=== PATIENT | female | born 1960 | race Caucasian/White ===

== ENCOUNTER 2024-05-12 03:06 | Emergency (ER) | payer OTHER ==
[2024-05-12 03:31] VITALS: TEMP 96.4
--- NOTE | 2024-05-12 03:53 | ERPHSYRPT ---
- History of Present Illness Source: patient, family, EMS Exam Limitations: clinical condition Patient Subjective Stated Complaint: per ems, pt was confused at home. upon arrival pt was cool and clammy, confused with repetitive speech. Triage Nursing Assessment: pt alert, oriented, to person only. confused with repetitive speech. pt arrive per ambulance and transfers to stretcher with assist of 3. respirations nonlabored. skin cool and clammy. pupils equal and reactive. pt moves all extremities without diff. Timing/Duration: today Severity: moderate Character of Deficits: unable to speak Deficits: weak Hx Tetanus, Diphtheria Vaccination/Date Given: (unknown) <CADEN GUTIERREZ - Last Filed: 05/12/24 06:39> <FILIPE MYERS - Last Filed: 05/12/24 09:08> - History of Present Illness Time Seen by Provider: 05/12/24 03:30 Physician History: This is a 63-year-old white female patient brought to the emergency department by the paramedics at the request of neighbor because of this patient having confusion. Patient's blood sugar was 127. Patient arrives diaphoretic with skin that is cool. Her speech is repetitive in its pattern. She is a poor historian. The timing of this occurring is unknown. We do not know her drug allergies or medication list. Patient's daughter did call here and informed the nursing staff that patient was at [facility] emergency department yesterday. We will locate those records and I will review them. Patient shakes her head no when asked if she is having chest pain. Patient shakes her head no when she was asked if she has abdominal pain. Patient shook her head no when asked if she had shortness of breath. (CADEN GUTIERREZ) Allergies/Adverse Reactions: metronidazole [From Flagyl] Allergy (Intermediate, Verified 05/12/24 05:26) Hives nystatin Allergy (Intermediate, Verified 05/12/24 05:26) Hives hydrocodone Adverse Reaction (Mild, Verified 05/12/24 05:26) Nausea Travel Risk - International Travel Have you traveled outside of the country in past 3 weeks: No - Emerging Infectious Disease Are you exhibiting symptoms associated with any current EIDs: No <CADEN GUTIERREZ - Last Filed: 05/12/24 06:39> - Past Medical History Pertinent Past Medical History: No Neurological History: No Pertinent History ENT History: No Pertinent History Cardiac History: No Pertinent History Respiratory History: No Pertinent History Endocrine Medical History: No Pertinent History Musculoskeletal History: No Pertinent History GI Medical History: No Pertinent History History: No Pertinent History Psycho-Social History: No Pertinent History Female Reproductive Disorders: No Pertinent History Other Medical History: pt confused, hx obtained from previous visit. - Past Surgical History Past Surgical History: Yes Neuro Surgical History: No Pertinent History Cardiac: No Pertinent History Respiratory: No Pertinent History Gastrointestinal: No Pertinent History Genitourinary: No Pertinent History Musculoskeletal: No Pertinent History Female Surgical History: Tubal Ligation, Other Other Surgical History: breast cyst removed, eyes-LASIX surgery - Social History Smoking Status: Former smoker Exposure to second hand smoke: No Drug Use: none - Social Determinants of Health Will the patient participate in the screening: Unable to obtain <CADEN GUTIERREZ - Last Filed: 05/12/24 06:39> - Physical Exam SpO2: 96 <CADEN GUTIERREZ - Last Filed: 05/12/24 06:39> - Nursing Vital Signs Nursing Vital Signs: Initial Vital Signs Temperature 96.4 F 05/12/24 03:13 Pulse Rate 80 05/12/24 03:13 Respiratory Rate 16 05/12/24 03:13 Blood Pressure 126/81 05/12/24 03:13 O2 Sat by Pulse Oximetry 96 05/12/24 03:13 Pain Scale Pain Intensity 3 - Course EKG Interpreted by Me: RATE (71), Sinus Rhythm, NORMAL AXIS, NORMAL INTERVALS, NORMAL QRS, Other (No acute ischemic changes on today's twelve-lead EKG. QTc is 433) <CADEN GUTIERREZ - Last Filed: 05/12/24 06:39> Ordered Tests: Active Orders 24 hr Category Date Time Status Photographer Finish STAT Care 05/12/24 03:53 Active Cath for Specimen-Straight STAT Care 05/12/24 03:53 Active Clean Catch Urine Specimen STAT Care 05/12/24 04:59 Active EKG-ER Only STAT Care 05/12/24 03:53 Active IV Insertion STAT Care 05/12/24 03:53 Active NPO (ED) STAT Care 05/12/24 03:53 Active Pulse Oximetry (ED) STAT Care 05/12/24 03:53 Active HEAD WITHOUT CONTRAST [CT] Stat Exams 05/12/24 03:25 Completed Alcohol [ETHYL ALCOHOL] Stat Lab 05/12/24 04:10 Completed BLOOD CULTURE Stat Lab 05/12/24 04:15 Received CBC W DIFF Stat Lab 05/12/24 04:15 Completed CMP Stat Lab 05/12/24 04:15 Completed CULTURE,URINE Stat Lab 05/12/24 04:25 Received D-DIMER QUANTITATIVE Stat Lab 05/12/24 04:10 Completed Lactic Acid Stat Lab 05/12/24 04:05 Completed MONO SCREEN Stat Lab 05/12/24 04:15 Completed PROTIME WITH INR Stat Lab 05/12/24 04:15 Completed TROPONIN Q4H Lab 05/12/24 04:10 Completed TROPONIN Q4H Lab 05/12/24 06:17 Completed TROPONIN Q4H Lab 05/12/24 13:00 Ordered TROPONIN Q4H Lab 05/12/24 17:00 Ordered TROPONIN Q4H Lab 05/12/24 21:00 Ordered UA W/RFX UR CULTURE Stat Lab 05/12/24 04:25 Completed Urine Triage Profile Stat Lab 05/12/24 04:10 Completed Medication Summary Generic Name Dose Route Start Last Admin Trade Name Freq PRN Reason Stop Dose Admin Sodium Chloride 1,000 mls @ 100 mls/hr 05/12/24 04:00 05/12/24 04:07 Sodium Chloride 0.9% 1000 Ml IV 06/11/24 03:59 100 mls/hr .Q10H JAMEE Administration Lab/Rad Data: Laboratory Result Diagrams 05/12/24 04:15 05/12/24 04:15 Laboratory Results 05/12/24 05/12/24 05/12/24 Range/Units 06:17 04:25 04:15 WBC (3.98-10.04) x10^3/uL RBC (3.93-5.22) x10^6/uL Hgb (11.2-15.7) g/dL Hct (34.1-44.9) % MCV (79.4-94.8) fL MCH (25.6-32.2) pg MCHC (32.2-35.5) g/dL RDW (11.7-14.4) % Plt Count (182-369) x10^3/uL MPV (9.4-12.3) fL Gran % (34.0-71.1) % Immature Gran % (Auto) (0.001-0.429) % Nucleat RBC Rel Count (0.00-0.2) % Eos # (Auto) (0.04-0.36) x10^3/uL Immature Gran # (Auto) (0.001-0.031) x10^3u/L Absolute Lymphs (auto) (1.18-3.74) x10^3/uL Absolute Monos (auto) (0.24-0.86) x10^3/uL Absolute Nucleated RBC (0.00-0.012) x10^3u/L Lymphocytes % (19.3-51.7) % Monocytes % (4.7-12.5) % Eosinophils % (0.7-5.8) % Basophils % (0.1-1.2) % Absolute Granulocytes (1.56-6.13) x10^3/uL Basophils # (0.01-0.08) x10^3/uL PT (9.4-12.5) SECONDS INR (0.8-3.0) D-Dimer (0.0-0.50) mg/L Sodium (135-145) mmol/L Potassium (3.5-5.1) mmol/L Chloride (98-107) mmol/L Carbon Dioxide (22-30) mmol/L Anion Gap (5-15) MEQ/L BUN (7-17) mg/dL Creatinine (0.52-1.04) mg/dL Estimated GFR ML/MIN Glucose (74-106) mg/dL Lactic Acid (0.4-2.0) Calcium (8.4-10.2) mg/dL Total Bilirubin (0.2-1.3) mg/dL AST (14-36) U/L ALT (0-35) U/L Alkaline Phosphatase (38-126) U/L Ammonia (9-30) umol/L Troponin I < 0.012 (0.000-0.033) ng/mL Serum Total Protein (6.3-8.2) g/dL Albumin (3.5-5.0) g/dL Urine Color Dark Yellow A (Yellow) Urine Appearance Clear (Clear) Urine pH 5.5 (4.6-8.0) Ur Specific Gilman 1.025 (1.005-1.030) Urine Protein 300 A (Negative) Urine Glucose (UA) Negative (Negative) mg/dL Urine Ketones Trace A (Negative) Urine Blood Negative (Negative) Urine Nitrite Negative (Negative) Urine Bilirubin Negative (Negative) Urine Urobilinogen 1.0 A (0.2) mg/dL Ur Leukocyte Esterase Negative (Negative) U Hyaline Cast (Auto) 20-50 (0-2) /LPF Urine Microscopic RBC 0-2 (0-5) /HPF Urine Microscopic WBC 6-10 A (0-5) /HPF Ur Epithelial Cells Rare (None Seen) /HPF Urine Bacteria None Seen (None Seen) /HPF Urine Mucus Many A (NEGATIVE) /HPF Urine Culture Reflexed ORDERED SEPARATELY (NO) Urine Opiates Level (NEGATIVE) Ur Methadone (NEGATIVE) Urine Barbiturates (NEGATIVE) Ur Phencyclidine (PCP) (NEGATIVE) Urine Amphetamine (NEGATIVE) U Benzodiazepine Level (NEGATIVE) Urine Cocaine (NEGATIVE) Urine Marijuana (THC) (NEGATIVE) Ethyl Alcohol (0-10) mg/dL Monoscreen (NEGATIVE) Influenza Type A Ag NEGATIVE (NEGATIVE) Influenza Type B Ag NEGATIVE (NEGATIVE) RSV (PCR) NEGATIVE (NEGATIVE) SARS-CoV-2 (PCR) NEGATIVE (NEGATIVE) 05/12/24 05/12/24 05/12/24 Range/Units 04:15 04:15 04:15 WBC (3.98-10.04) x10^3/uL RBC (3.93-5.22) x10^6/uL Hgb (11.2-15.7) g/dL Hct (34.1-44.9) % MCV (79.4-94.8) fL MCH (25.6-32.2) pg MCHC (32.2-35.5) g/dL RDW (11.7-14.4) % Plt Count (182-369) x10^3/uL MPV (9.4-12.3) fL Gran % (34.0-71.1) % Immature Gran % (Auto) (0.001-0.429) % Nucleat RBC Rel Count (0.00-0.2) % Eos # (Auto) (0.04-0.36) x10^3/uL Immature Gran # (Auto) (0.001-0.031) x10^3u/L Absolute Lymphs (auto) (1.18-3.74) x10^3/uL Absolute Monos (auto) (0.24-0.86) x10^3/uL Absolute Nucleated RBC (0.00-0.012) x10^3u/L Lymphocytes % (19.3-51.7) % Monocytes % (4.7-12.5) % Eosinophils % (0.7-5.8) % Basophils % (0.1-1.2) % Absolute Granulocytes (1.56-6.13) x10^3/uL Basophils # (0.01-0.08) x10^3/uL PT 9.9 (9.4-12.5) SECONDS INR 0.90 (0.8-3.0) D-Dimer (0.0-0.50) mg/L Sodium (135-145) mmol/L Potassium (3.5-5.1) mmol/L Chloride (98-107) mmol/L Carbon Dioxide (22-30) mmol/L Anion Gap (5-15) MEQ/L BUN (7-17) mg/dL Creatinine (0.52-1.04) mg/dL Estimated GFR ML/MIN Glucose (74-106) mg/dL Lactic Acid (0.4-2.0) Calcium (8.4-10.2) mg/dL Total Bilirubin (0.2-1.3) mg/dL AST (14-36) U/L ALT (0-35) U/L Alkaline Phosphatase (38-126) U/L Ammonia < 9 L (9-30) umol/L Troponin I (0.000-0.033) ng/mL Serum Total Protein (6.3-8.2) g/dL Albumin (3.5-5.0) g/dL Urine Color (Yellow) Urine Appearance (Clear) Urine pH (4.6-8.0) Ur Specific Gilman (1.005-1.030) Urine Protein (Negative) Urine Glucose (UA) (Negative) mg/dL Urine Ketones (Negative) Urine Blood (Negative) Urine Nitrite (Negative) Urine Bilirubin (Negative) Urine Urobilinogen (0.2) mg/dL Ur Leukocyte Esterase (Negative) U Hyaline Cast (Auto) (0-2) /LPF Urine Microscopic RBC (0-5) /HPF Urine Microscopic WBC (0-5) /HPF Ur Epithelial Cells (None Seen) /HPF Urine Bacteria (None Seen) /HPF Urine Mucus (NEGATIVE) /HPF Urine Culture Reflexed (NO) Urine Opiates Level (NEGATIVE) Ur Methadone (NEGATIVE) Urine Barbiturates (NEGATIVE) Ur Phencyclidine (PCP) (NEGATIVE) Urine Amphetamine (NEGATIVE) U Benzodiazepine Level (NEGATIVE) Urine Cocaine (NEGATIVE) Urine Marijuana (THC) (NEGATIVE) Ethyl Alcohol (0-10) mg/dL Monoscreen NEGATIVE (NEGATIVE) Influenza Type A Ag (NEGATIVE) Influenza Type B Ag (NEGATIVE) RSV (PCR) (NEGATIVE) SARS-CoV-2 (PCR) (NEGATIVE) 05/12/24 05/12/24 05/12/24 Range/Units 04:15 04:15 04:10 WBC 7.8 (3.98-10.04) x10^3/uL RBC 4.82 (3.93-5.22) x10^6/uL Hgb 14.4 (11.2-15.7) g/dL Hct 42.6 (34.1-44.9) % MCV 88.4 (79.4-94.8) fL MCH 29.9 (25.6-32.2) pg MCHC 33.8 (32.2-35.5) g/dL RDW 13.7 (11.7-14.4) % Plt Count 296 (182-369) x10^3/uL MPV 9.2 L (9.4-12.3) fL Gran % 73.4 H (34.0-71.1) % Immature Gran % (Auto) 0.5 H (0.001-0.429) % Nucleat RBC Rel Count 0.0 (0.00-0.2) % Eos # (Auto) 0.10 (0.04-0.36) x10^3/uL Immature Gran # (Auto) 0.04 H (0.001-0.031) x10^3u/L Absolute Lymphs (auto) 1.41 (1.18-3.74) x10^3/uL Absolute Monos (auto) 0.46 (0.24-0.86) x10^3/uL Absolute Nucleated RBC 0.00 (0.00-0.012) x10^3u/L Lymphocytes % 18.1 L (19.3-51.7) % Monocytes % 5.9 (4.7-12.5) % Eosinophils % 1.3 (0.7-5.8) % Basophils % 0.8 (0.1-1.2) % Absolute Granulocytes 5.72 (1.56-6.13) x10^3/uL Basophils # 0.06 (0.01-0.08) x10^3/uL PT (9.4-12.5) SECONDS INR (0.8-3.0) D-Dimer (0.0-0.50) mg/L Sodium 139 (135-145) mmol/L Potassium 3.7 (3.5-5.1) mmol/L Chloride 109 H (98-107) mmol/L Carbon Dioxide 23 (22-30) mmol/L Anion Gap 10.6 (5-15) MEQ/L BUN 16 (7-17) mg/dL Creatinine 0.67 (0.52-1.04) mg/dL Estimated GFR 98.2 ML/MIN Glucose 115 H (74-106) mg/dL Lactic Acid (0.4-2.0) Calcium 9.7 (8.4-10.2) mg/dL Total Bilirubin 0.30 (0.2-1.3) mg/dL AST 23 (14-36) U/L ALT 23 (0-35) U/L Alkaline Phosphatase 109 (38-126) U/L Ammonia (9-30) umol/L Troponin I (0.000-0.033) ng/mL Serum Total Protein 6.9 (6.3-8.2) g/dL Albumin 3.9 (3.5-5.0) g/dL Urine Color (Yellow) Urine Appearance (Clear) Urine pH (4.6-8.0) Ur Specific Gilman (1.005-1.030) Urine Protein (Negative) Urine Glucose (UA) (Negative) mg/dL Urine Ketones (Negative) Urine Blood (Negative) Urine Nitrite (Negative) Urine Bilirubin (Negative) Urine Urobilinogen (0.2) mg/dL Ur Leukocyte Esterase (Negative) U Hyaline Cast (Auto) (0-2) /LPF Urine Microscopic RBC (0-5) /HPF Urine Microscopic WBC (0-5) /HPF Ur Epithelial Cells (None Seen) /HPF Urine Bacteria (None Seen) /HPF Urine Mucus (NEGATIVE) /HPF Urine Culture Reflexed (NO) Urine Opiates Level (NEGATIVE) Ur Methadone (NEGATIVE) Urine Barbiturates (NEGATIVE) Ur Phencyclidine (PCP) (NEGATIVE) Urine Amphetamine (NEGATIVE) U Benzodiazepine Level (NEGATIVE) Urine Cocaine (NEGATIVE) Urine Marijuana (THC) (NEGATIVE) Ethyl Alcohol < 10 (0-10) mg/dL Monoscreen (NEGATIVE) Influenza Type A Ag (NEGATIVE) Influenza Type B Ag (NEGATIVE) RSV (PCR) (NEGATIVE) SARS-CoV-2 (PCR) (NEGATIVE) 05/12/24 05/12/24 05/12/24 Range/Units 04:10 04:10 04:10 WBC (3.98-10.04) x10^3/uL RBC (3.93-5.22) x10^6/uL Hgb (11.2-15.7) g/dL Hct (34.1-44.9) % MCV (79.4-94.8) fL MCH (25.6-32.2) pg MCHC (32.2-35.5) g/dL RDW (11.7-14.4) % Plt Count (182-369) x10^3/uL MPV (9.4-12.3) fL Gran % (34.0-71.1) % Immature Gran % (Auto) (0.001-0.429) % Nucleat RBC Rel Count (0.00-0.2) % Eos # (Auto) (0.04-0.36) x10^3/uL Immature Gran # (Auto) (0.001-0.031) x10^3u/L Absolute Lymphs (auto) (1.18-3.74) x10^3/uL Absolute Monos (auto) (0.24-0.86) x10^3/uL Absolute Nucleated RBC (0.00-0.012) x10^3u/L Lymphocytes % (19.3-51.7) % Monocytes % (4.7-12.5) % Eosinophils % (0.7-5.8) % Basophils % (0.1-1.2) % Absolute Granulocytes (1.56-6.13) x10^3/uL Basophils # (0.01-0.08) x10^3/uL PT (9.4-12.5) SECONDS INR (0.8-3.0) D-Dimer 0.41 (0.0-0.50) mg/L Sodium (135-145) mmol/L Potassium (3.5-5.1) mmol/L Chloride (98-107) mmol/L Carbon Dioxide (22-30) mmol/L Anion Gap (5-15) MEQ/L BUN (7-17) mg/dL Creatinine (0.52-1.04) mg/dL Estimated GFR ML/MIN Glucose (74-106) mg/dL Lactic Acid (0.4-2.0) Calcium (8.4-10.2) mg/dL Total Bilirubin (0.2-1.3) mg/dL AST (14-36) U/L ALT (0-35) U/L Alkaline Phosphatase (38-126) U/L Ammonia (9-30) umol/L Troponin I < 0.012 (0.000-0.033) ng/mL Serum Total Protein (6.3-8.2) g/dL Albumin (3.5-5.0) g/dL Urine Color (Yellow) Urine Appearance (Clear) Urine pH (4.6-8.0) Ur Specific Gilman (1.005-1.030) Urine Protein (Negative) Urine Glucose (UA) (Negative) mg/dL Urine Ketones (Negative) Urine Blood (Negative) Urine Nitrite (Negative) Urine Bilirubin (Negative) Urine Urobilinogen (0.2) mg/dL Ur Leukocyte Esterase (Negative) U Hyaline Cast (Auto) (0-2) /LPF Urine Microscopic RBC (0-5) /HPF Urine Microscopic WBC (0-5) /HPF Ur Epithelial Cells (None Seen) /HPF Urine Bacteria (None Seen) /HPF Urine Mucus (NEGATIVE) /HPF Urine Culture Reflexed (NO) Urine Opiates Level NEGATIVE (NEGATIVE) Ur Methadone NEGATIVE (NEGATIVE) Urine Barbiturates NEGATIVE (NEGATIVE) Ur Phencyclidine (PCP) NEGATIVE (NEGATIVE) Urine Amphetamine POSITIVE A (NEGATIVE) U Benzodiazepine Level NEGATIVE (NEGATIVE) Urine Cocaine NEGATIVE (NEGATIVE) Urine Marijuana (THC) POSITIVE A (NEGATIVE) Ethyl Alcohol (0-10) mg/dL Monoscreen (NEGATIVE) Influenza Type A Ag (NEGATIVE) Influenza Type B Ag (NEGATIVE) RSV (PCR) (NEGATIVE) SARS-CoV-2 (PCR) (NEGATIVE) 05/12/24 Range/Units 04:05 WBC (3.98-10.04) x10^3/uL RBC (3.93-5.22) x10^6/uL Hgb (11.2-15.7) g/dL Hct (34.1-44.9) % MCV (79.4-94.8) fL MCH (25.6-32.2) pg MCHC (32.2-35.5) g/dL RDW (11.7-14.4) % Plt Count (182-369) x10^3/uL MPV (9.4-12.3) fL Gran % (34.0-71.1) % Immature Gran % (Auto) (0.001-0.429) % Nucleat RBC Rel Count (0.00-0.2) % Eos # (Auto) (0.04-0.36) x10^3/uL Immature Gran # (Auto) (0.001-0.031) x10^3u/L Absolute Lymphs (auto) (1.18-3.74) x10^3/uL Absolute Monos (auto) (0.24-0.86) x10^3/uL Absolute Nucleated RBC (0.00-0.012) x10^3u/L Lymphocytes % (19.3-51.7) % Monocytes % (4.7-12.5) % Eosinophils % (0.7-5.8) % Basophils % (0.1-1.2) % Absolute Granulocytes (1.56-6.13) x10^3/uL Basophils # (0.01-0.08) x10^3/uL PT (9.4-12.5) SECONDS INR (0.8-3.0) D-Dimer (0.0-0.50) mg/L Sodium (135-145) mmol/L Potassium (3.5-5.1) mmol/L Chloride (98-107) mmol/L Carbon Dioxide (22-30) mmol/L Anion Gap (5-15) MEQ/L BUN (7-17) mg/dL Creatinine (0.52-1.04) mg/dL Estimated GFR ML/MIN Glucose (74-106) mg/dL Lactic Acid 0.6 (0.4-2.0) Calcium (8.4-10.2) mg/dL Total Bilirubin (0.2-1.3) mg/dL AST (14-36) U/L ALT (0-35) U/L Alkaline Phosphatase (38-126) U/L Ammonia (9-30) umol/L Troponin I (0.000-0.033) ng/mL Serum Total Protein (6.3-8.2) g/dL Albumin (3.5-5.0) g/dL Urine Color (Yellow) Urine Appearance (Clear) Urine pH (4.6-8.0) Ur Specific Gilman (1.005-1.030) Urine Protein (Negative) Urine Glucose (UA) (Negative) mg/dL Urine Ketones (Negative) Urine Blood (Negative) Urine Nitrite (Negative) Urine Bilirubin (Negative) Urine Urobilinogen (0.2) mg/dL Ur Leukocyte Esterase (Negative) U Hyaline Cast (Auto) (0-2) /LPF Urine Microscopic RBC (0-5) /HPF Urine Microscopic WBC (0-5) /HPF Ur Epithelial Cells (None Seen) /HPF Urine Bacteria (None Seen) /HPF Urine Mucus (NEGATIVE) /HPF Urine Culture Reflexed (NO) Urine Opiates Level (NEGATIVE) Ur Methadone (NEGATIVE) Urine Barbiturates (NEGATIVE) Ur Phencyclidine (PCP) (NEGATIVE) Urine Amphetamine (NEGATIVE) U Benzodiazepine Level (NEGATIVE) Urine Cocaine (NEGATIVE) Urine Marijuana (THC) (NEGATIVE) Ethyl Alcohol (0-10) mg/dL Monoscreen (NEGATIVE) Influenza Type A Ag (NEGATIVE) Influenza Type B Ag (NEGATIVE) RSV (PCR) (NEGATIVE) SARS-CoV-2 (PCR) (NEGATIVE) - Progress Progress: unchanged <CADEN GUTIERREZ - Last Filed: 05/12/24 06:39> - Progress Progress: improved Discussed with : Other (Dr. Artis neurology associate) Counseled pt/family regarding: lab results, diagnosis, need for follow-up, rad results <LOUIS,FILIPE - Last Filed: 05/12/24 09:08> - Progress Progress Note: 05/12/24 04:11 My medical decision making and the assignment of moderate to high complexity is based on review of the patient's past medical history, review of the patient's medication list, reviewed patient drug allergy list, history present illness and physical findings on examination. The workup in this patient includes stat CT scan of the head without contrast, placement of intravenous line, infusion of low rate normal saline solution, urinalysis, twelve-lead EKG, magnesium level, CBC, CMP, PT/INR, BNP, troponin level, ammonia level, blood culture, urine drug triage. We will also request the records from [facility] visit from 05/11/2024. Differential diagnosis includes but is not limited to sepsis, electrolyte abnormalities, acute intracranial abnormality, urinary tract infection, dehydration, arrhythmia, anemia The CT scan of the head without contrast was interpreted by the radiologist and I reviewed the impression. The impression states no intra or extra-axial hematomas or parenchymal hypodense areas suggestive of acute ischemic insult. Microvascular ischemic changes with age matches. Mild brain involutional changes. 05/12/24 04:51 I reviewed the patient's emergency room visit results from her most recent visit to the emergency room at [facility]. The chest x-ray there is negative for acute cardiopulmonary process. She had 2 normal troponins. Her twelve-lead EKG was nonacute. Her complaint there was chest pain. Patient was discharged to home from the emergency department. 05/12/24 05:50 This patient is now more awake and answering questions but still seems somewhat confused. Based on the review and evaluation of the patient's visit at another facility 24 hours ago, she was much more awake alert and answering questions. Today she hesitates in her speech and does not recall the events that prompted her to come to the emergency department. She did mention that she had a "mud slide" alcoholic drink which she stated included chocolate milk, coffee and ROM. She stated that she only had 1 drink. 05/12/24 06:10 The patient lethargic, arousable but still somewhat confused. Her neuroexam is nonfocal. We will repeat a twelve-lead EKG and troponin level. We will obtain a teleneuro consultation. 05/12/24 06:39 I reexamined the patient she is still very sleepy groggy lethargic and somewhat confused. I will be transferring care of this patient to Dr. Myers at shift change. I will provide him with patient's past medical history, presenting complaint and workup results. He will follow-up with the workup results including following the recommendations by teleneurology. I interpreted the repeat twelve-lead EKG that was performed on 05/12/2024 at 6:24 AM the heart rate is 74 bpm. It is normal sinus rhythm. There is normal axis deviation, normal intervals and normal QRS. The QTc is 438 (CADEN GUTIERREZ) 05/12/24 08:59 Patient is checked out to me at shift change from Dr. Gutierrez with pending neurology evaluation. Patient presented with altered mental status/confusion which gradually improved and currently is back to her baseline. Broad workup is done which is essentially unremarkable. Patient drug screen is positive for THC and amphetamine. Patient does admit taking something yesterday that was given to her by someone but unsure about what it was. Neurology has evaluated patient and do not think she needs any inpatient workup as her CT is showing some old lacunar infarction, microvascular changes and needs outpatient follow-up.. He thinks patient's symptoms are more of a secondary to substance use and has essentially nonfocal neuroexam otherwise. Neurology also recommended 81 mg daily aspirin. She has no chest pain palpitations or shortness of breath. She is back to her baseline. I have discussed the results of workup and neurology recommendation with the patient. Patient's daughter was curious about her diagnosis and I have discussed with the patient and she does not want me to discussed this with daughter and I have told daughter about patient's wishes. Her blood pressure is 140s systolic, on not in any distress, I have advised patient and daughter to have outpatient follow-up with primary care and need neurology evaluation outpatient. Discussed signs symptoms of worsening needing return to ER which they seem understanding. Stable for discharge. (FILIPE MYERS) Medical Desision Making - Diagnostic Testing Diagnostic test were ordered, analyzed, and reviewed by me: Yes Radiological Interpretation: Reviewed by me, Teleradiologist Report <CADEN GUTIERREZ - Last Filed: 05/12/24 06:39> - Independent Historian Additional History obtained from: Child - Discussion of managment Care discussed with:: specialist (Dr. Artis [facility] neurology) Reviewed:: Test results Agreed on:: Treatment plan, place in obs Will see patient: in ED - Diagnostic Testing Diagnostic test were ordered, analyzed, and reviewed by me: Yes - Risk of complications The pt has a mod risk of morbidity or mortality based on: Need for prescription drug management <FILIPE MYERS - Last Filed: 05/12/24 09:08> - Departure Departure Disposition: Observation Critical Care Time: No <CADEN GUTIERREZ - Last Filed: 05/12/24 06:39> - Departure Departure Disposition: Home Critical Care Time: No <FILIPE MYERS - Last Filed: 05/12/24 09:08> - Departure Clinical Impression: Nonspecific chest pain, Confusion, Lethargic, Substance abuse Condition: Stable Referrals: DOCTOR,NO FAMILY [Primary Care Provider] - Follow up with PCP 1 day (Call for appointment for reevaluation in 1 to 2 days) Instructions: Substance use disorder - ED discharge instructions Additional Instructions: Take daily aspirin. Follow-up with primary care and neurology for reevaluation. Do not smoke or drink alcohol or any other drug use. Return to ER for worsening of symptoms like confusion, numbness tingling focal weakness, chest pain palpitations or shortness of breath etc. Prescriptions: Aspirin EC 81 mg [Ecotrin 81 mg] 81 mg PO DAILY #90 tablet
[2024-05-12] MEDS ORDERED: Sodium Chloride 0.9% 1000 ML 1,000 ML ONE (04:05)
--- NOTE | 2024-05-12 04:05 | XRAY ---
CLINICAL HISTORY: confusion COMPARISON: None TECHNIQUE: Axial noncontrast CT scan of the brain was performed from the skull base to the high parietal region with coronal and sagittal reformats. One of the following dose reduction techniques were utilized for this exam: Automated exposure control, adjustment of the mA and/or kV according to patient size, use of iterative reconstruction. FINDINGS: Accentuated bilateral cerebral periventricular white matter hypodensities denoting hypoperfusion with bilateral cerebral periventricular and subcortical as well as basal ganglia and thalamic hypodense foci and patches, some of them show CSF like density. The howell white mater differentiation is preserved. Normal CT appearance of the posterior fossa structures namely the cerebellar hemispheres, brain stem and cerebellar peduncles. No intracerebral or extra axial hematoma. Prominent ventricular system, cortical sulci and extra-axial CSF spaces. No midline shifts or deformity. No definite calvarial fractures. The osseous structures in the skull base are unremarkable. The scanned paranasal sinuses are unremarkable. IMPRESSION: 1. No intra or extra-axial hematomas or parenchymal territorial hypodense areas suggestive of acute ischemic insult. Early changes of stroke may not be detected on a CT scan. If strong clinical suspicion of stroke then suggest MRI with diffusion-weighted imaging. 2. Microvascular ischemic changes with age matches mild brain involutional changes. Electronically Signed by: Estefani Zaragoza MD. (05/12/2024 04:00:33 EST)
[2024-05-12] MEDS: Sodium Chloride 0.9% 1000 ML 1,000 ML IV SCH (04:07)
[2024-05-12 04:30] LABS: Absolute Neutrophil Ct (ANC) 5.72 x10^3/uL (1.56-6.13); BASOPHIL % 0.8 % (0.1-1.2); Basophil (Absolute #) 0.06 x10^3/uL (0.01-0.08); Eosinophil % 1.3 % (0.7-5.8); Hematocrit 42.6 % (34.1-44.9); Hemoglobin 14.4 g/dL (11.2-15.7); IMMATURE GRAN # 0.04 x10^3u/L (0.001-0.031); IMMATURE GRAN % 0.5 % (0.001-0.429); Lymphocyte (Absolute #) 1.41 x10^3/uL (1.18-3.74); Lymphocytes % 18.1 % (19.3-51.7); Mean Cell Volume 88.4 fL (79.4-94.8); Mean Corpuscular Hemoglobin 29.9 pg (25.6-32.2); Mean Corpuscular Hgb Concent. 33.8 g/dL (32.2-35.5); Mean Platelet Volume 9.2 fL (9.4-12.3); Monocyte (Absolute #) 0.46 x10^3/uL (0.24-0.86); Monocytes % 5.9 % (4.7-12.5); Neutrophil % 73.4 % (34.0-71.1); Platelet Count 296 x10^3/uL (182-369); Red Blood Count 4.82 x10^6/uL (3.93-5.22); Red Cell Distribution Width 13.7 % (11.7-14.4); White Blood Count 7.8 x10^3/uL (3.98-10.04)
[2024-05-12 04:38] LABS: ALBUMIN 3.9 g/dL (3.5-5.0); ANION GAP 10.6 MEQ/L (5-15); BILIRUBIN,TOTAL 0.3 mg/dL (0.2-1.3); Calcium 9.7 mg/dL (8.4-10.2); Creatinine 1 0.67 mg/dL (0.52-1.04); EST GLOMERULAR FILTRATION RATE 98.2 ML/MIN; Potassium 3.7 mmol/L (3.5-5.1); Total Protein 6.9 g/dL (6.3-8.2)
[2024-05-12 04:49] LABS: INR 0.9 (0.8-3.0); PROTIME 9.9 SECONDS (9.4-12.5)
[2024-05-12 05:02] LABS: INFLUENZA A NEGATIVE (NEGATIVE); INFLUENZA B NEGATIVE (NEGATIVE); RESPIRATORY SYNCTIAL VIRUS NEGATIVE (NEGATIVE); SARS-CoV-2 Xpert Express NEGATIVE (NEGATIVE)
[2024-05-12 05:12] LABS: Appearance Clear (Clear); Bacteria None Seen /HPF (None Seen); Bilirubin Negative (Negative); Blood Negative (Negative); Epithelial Cells Rare /HPF (None Seen); Glucose, Urine Negative (Negative); Hyaline Casts 20-50 /LPF (0-2); Ketones Trace (Negative); Leukocyte Esterase Negative (Negative); Mucus Many /HPF (NEGATIVE); Nitrite Negative (Negative); Ph 5.5 (4.6-8.0); Protein,Urine Dip 300 (Negative); RBC 0-2 /HPF (0-5); Specific Gravity 1.025 (1.005-1.030)
[2024-05-12 05:25] LABS: Barbiturate,Urine NEGATIVE (NEGATIVE); Benzodiazepine,Urine NEGATIVE (NEGATIVE); Cocaine,Urine NEGATIVE (NEGATIVE); Methadone,Urine NEGATIVE (NEGATIVE); Opiate,Urine NEGATIVE (NEGATIVE); PCP,Urine NEGATIVE (NEGATIVE); THC,Urine POSITIVE (NEGATIVE)
[2024-05-12 06:20] LABS: Amphetamine,Urine POSITIVE (NEGATIVE)
--- NOTE | 2024-05-12 08:49 | PCM.CONS ---
History of Present Illness - Neuro Consultation ED Arrival Date & Time: 05/12/24 03:06 Providers: Attending Provider: ED Provider: CADEN GUTIERREZ Consulting Provider: DELANEY GODINEZ MD cc:: The requesting physician will be sent a copy of the consult. - Chief Complaint Patient Subjective Stated Complaint: Loss of consciousness, confusion - History of Present Illness HPI: 63 year old woman with unknown past medical history, who reportedly lost consciousness at home and after awakening was confused, disoriented, and repeating the same words and phrases. A neighbor called EMS who confirmed that she was confused. Since her arrival in the ER she has become more responsive. She stated that she was celebrating at home and had several drinks. A serum ethanol level was negative, but a urine toxicology screen was positive for amhetamines and Marijuana. She was evaluated yesterday at the [facility] emergency room for complaints of chest pain. According to her daughter she was found to have elevated blood pressure, but no acute cardiac event. She takes no prescription medications. Review of Systems - Review of Systems Review of Systems (Narrative): Pertinent positive and negative findings as per HPI. All other systems negative. - Past Medical History Past Medical History: No Neurological History: No Pertinent History ENT History: No Pertinent History Cardiac History: No Pertinent History Respiratory History: No Pertinent History Endocrine Medical History: No Pertinent History Musculoskelatal History: No Pertinent History GI Medical History: No Pertinent History History: No Pertinent History Pyscho-Social History: No Pertinent History Reproductive Disorders: No Pertinent History Comment: pt confused, hx obtained from previous visit. - Past Surgical History Past Surgical History: Yes Neuro Surgical History: No Pertinent History Cardiac History: No Pertinent History Respiratory Surgery: No Pertinent History GI Surgical History: No Pertinent History Genitourinary Surgical Hx: No Pertinent History Musculskeletal Surgical Hx: No Pertinent History Female Surgical History: Tubal Ligation, Other Other Surgical History: breast cyst removed, eyes-LASIX surgery - Social History Smoking Status: Former smoker Exposure to second hand smoke: No Alcohol: None Drug Use: none - Social Determinants of Health Will the patient participate in the screening: Unable to obtain Physical Exam - Vital Signs Vital Signs: Vital Signs - 24 hr 05/12/24 05/12/24 05/12/24 03:13 03:31 03:53 Temperature 96.4 F Pulse Rate 71 86 Respiratory 22 20 Rate Blood Pressure 126/81 149/64 Blood Pressure 126/81 [Right Arm] O2 Sat by Pulse 97 97 94 L Oximetry 05/12/24 05/12/24 05/12/24 04:00 04:30 05:00 Temperature Pulse Rate 81 87 82 Respiratory 14 15 17 Rate Blood Pressure 144/58 161/64 128/75 Blood Pressure [Right Arm] O2 Sat by Pulse 95 96 95 Oximetry 05/12/24 05/12/24 05/12/24 05:30 06:00 06:30 Temperature Pulse Rate 80 77 79 Respiratory 15 16 19 Rate Blood Pressure 131/74 161/70 173/94 Blood Pressure [Right Arm] O2 Sat by Pulse 95 97 97 Oximetry 05/12/24 05/12/24 05/12/24 06:42 07:01 07:30 Temperature Pulse Rate 76 85 Respiratory 16 20 Rate Blood Pressure 126/92 158/73 Blood Pressure [Right Arm] O2 Sat by Pulse 96 98 Oximetry 05/12/24 08:00 Temperature Pulse Rate 84 Respiratory 16 Rate Blood Pressure 141/77 Blood Pressure [Right Arm] O2 Sat by Pulse 96 Oximetry - Physical Exam Tele-Neuro Physical Exam (Narrative): NEUROLOGICAL EXAMINATION MENTAL STATUS: She was awake and alert. She was able to name the hospital and month, but not the day of the week. Speech was slightly dysarthric. Language was fluent. CRANIAL NERVES: Visual maldonado were full. Extraocular movements were full and conjugate. There was no ptosis. Facial sensation was intact to light touch. There was no facial asymmetry. MOTOR: There was no pronator drift. Fine motor function was intact in both hands. There was no fixed arm roll. She was able to elevate each leg off the bed for 5 seconds. SENSORY: Sensation was intact to light touch throughout COORDINATION: There was no nystagmus or dysmetria - NIHSS Stroke Scale Date Completed: 05/12/24 Time Stroke Scale Completed: 03:50 Dysarthria: Mild to mod dysarthria Stroke Risk Level: 1 Results - Labs Lab/Micro Results: Lab Results-Last 24 Hours 05/12/24 05/12/24 05/12/24 Range/Units 04:05 04:10 04:10 WBC (3.98-10.04) x10^3/uL RBC (3.93-5.22) x10^6/uL Hgb (11.2-15.7) g/dL Hct (34.1-44.9) % MCV (79.4-94.8) fL MCH (25.6-32.2) pg MCHC (32.2-35.5) g/dL RDW (11.7-14.4) % Plt Count (182-369) x10^3/uL MPV (9.4-12.3) fL Gran % (34.0-71.1) % Immature Gran % (Auto) (0.001-0.429) % Nucleat RBC Rel Count (0.00-0.2) % Eos # (Auto) (0.04-0.36) x10^3/uL Immature Gran # (Auto) (0.001-0.031) x10^3u/L Absolute Lymphs (auto) (1.18-3.74) x10^3/uL Absolute Monos (auto) (0.24-0.86) x10^3/uL Absolute Nucleated RBC (0.00-0.012) x10^3u/L Lymphocytes % (19.3-51.7) % Monocytes % (4.7-12.5) % Eosinophils % (0.7-5.8) % Basophils % (0.1-1.2) % Absolute Granulocytes (1.56-6.13) x10^3/uL Basophils # (0.01-0.08) x10^3/uL PT (9.4-12.5) SECONDS INR (0.8-3.0) D-Dimer 0.41 (0.0-0.50) mg/L Sodium (135-145) mmol/L Potassium (3.5-5.1) mmol/L Chloride (98-107) mmol/L Carbon Dioxide (22-30) mmol/L Anion Gap (5-15) MEQ/L BUN (7-17) mg/dL Creatinine (0.52-1.04) mg/dL Estimated GFR ML/MIN Glucose (74-106) mg/dL Lactic Acid 0.6 (0.4-2.0) Calcium (8.4-10.2) mg/dL Total Bilirubin (0.2-1.3) mg/dL AST (14-36) U/L ALT (0-35) U/L Alkaline Phosphatase (38-126) U/L Ammonia (9-30) umol/L Troponin I < 0.012 (0.000-0.033) ng/mL Serum Total Protein (6.3-8.2) g/dL Albumin (3.5-5.0) g/dL Urine Color (Yellow) Urine Appearance (Clear) Urine pH (4.6-8.0) Ur Specific Brimley (1.005-1.030) Urine Protein (Negative) Urine Glucose (UA) (Negative) mg/dL Urine Ketones (Negative) Urine Blood (Negative) Urine Nitrite (Negative) Urine Bilirubin (Negative) Urine Urobilinogen (0.2) mg/dL Ur Leukocyte Esterase (Negative) U Hyaline Cast (Auto) (0-2) /LPF Urine Microscopic RBC (0-5) /HPF Urine Microscopic WBC (0-5) /HPF Ur Epithelial Cells (None Seen) /HPF Urine Bacteria (None Seen) /HPF Urine Mucus (NEGATIVE) /HPF Urine Culture Reflexed (NO) Urine Opiates Level (NEGATIVE) Ur Methadone (NEGATIVE) Urine Barbiturates (NEGATIVE) Ur Phencyclidine (PCP) (NEGATIVE) Urine Amphetamine (NEGATIVE) U Benzodiazepine Level (NEGATIVE) Urine Cocaine (NEGATIVE) Urine Marijuana (THC) (NEGATIVE) Ethyl Alcohol (0-10) mg/dL Monoscreen (NEGATIVE) Influenza Type A Ag (NEGATIVE) Influenza Type B Ag (NEGATIVE) RSV (PCR) (NEGATIVE) SARS-CoV-2 (PCR) (NEGATIVE) 05/12/24 05/12/24 05/12/24 Range/Units 04:10 04:10 04:15 WBC 7.8 (3.98-10.04) x10^3/uL RBC 4.82 (3.93-5.22) x10^6/uL Hgb 14.4 (11.2-15.7) g/dL Hct 42.6 (34.1-44.9) % MCV 88.4 (79.4-94.8) fL MCH 29.9 (25.6-32.2) pg MCHC 33.8 (32.2-35.5) g/dL RDW 13.7 (11.7-14.4) % Plt Count 296 (182-369) x10^3/uL MPV 9.2 L (9.4-12.3) fL Gran % 73.4 H (34.0-71.1) % Immature Gran % (Auto) 0.5 H (0.001-0.429) % Nucleat RBC Rel Count 0.0 (0.00-0.2) % Eos # (Auto) 0.10 (0.04-0.36) x10^3/uL Immature Gran # (Auto) 0.04 H (0.001-0.031) x10^3u/L Absolute Lymphs (auto) 1.41 (1.18-3.74) x10^3/uL Absolute Monos (auto) 0.46 (0.24-0.86) x10^3/uL Absolute Nucleated RBC 0.00 (0.00-0.012) x10^3u/L Lymphocytes % 18.1 L (19.3-51.7) % Monocytes % 5.9 (4.7-12.5) % Eosinophils % 1.3 (0.7-5.8) % Basophils % 0.8 (0.1-1.2) % Absolute Granulocytes 5.72 (1.56-6.13) x10^3/uL Basophils # 0.06 (0.01-0.08) x10^3/uL PT (9.4-12.5) SECONDS INR (0.8-3.0) D-Dimer (0.0-0.50) mg/L Sodium (135-145) mmol/L Potassium (3.5-5.1) mmol/L Chloride (98-107) mmol/L Carbon Dioxide (22-30) mmol/L Anion Gap (5-15) MEQ/L BUN (7-17) mg/dL Creatinine (0.52-1.04) mg/dL Estimated GFR ML/MIN Glucose (74-106) mg/dL Lactic Acid (0.4-2.0) Calcium (8.4-10.2) mg/dL Total Bilirubin (0.2-1.3) mg/dL AST (14-36) U/L ALT (0-35) U/L Alkaline Phosphatase (38-126) U/L Ammonia (9-30) umol/L Troponin I (0.000-0.033) ng/mL Serum Total Protein (6.3-8.2) g/dL Albumin (3.5-5.0) g/dL Urine Color (Yellow) Urine Appearance (Clear) Urine pH (4.6-8.0) Ur Specific Brimley (1.005-1.030) Urine Protein (Negative) Urine Glucose (UA) (Negative) mg/dL Urine Ketones (Negative) Urine Blood (Negative) Urine Nitrite (Negative) Urine Bilirubin (Negative) Urine Urobilinogen (0.2) mg/dL Ur Leukocyte Esterase (Negative) U Hyaline Cast (Auto) (0-2) /LPF Urine Microscopic RBC (0-5) /HPF Urine Microscopic WBC (0-5) /HPF Ur Epithelial Cells (None Seen) /HPF Urine Bacteria (None Seen) /HPF Urine Mucus (NEGATIVE) /HPF Urine Culture Reflexed (NO) Urine Opiates Level NEGATIVE (NEGATIVE) Ur Methadone NEGATIVE (NEGATIVE) Urine Barbiturates NEGATIVE (NEGATIVE) Ur Phencyclidine (PCP) NEGATIVE (NEGATIVE) Urine Amphetamine POSITIVE A (NEGATIVE) U Benzodiazepine Level NEGATIVE (NEGATIVE) Urine Cocaine NEGATIVE (NEGATIVE) Urine Marijuana (THC) POSITIVE A (NEGATIVE) Ethyl Alcohol < 10 (0-10) mg/dL Monoscreen (NEGATIVE) Influenza Type A Ag (NEGATIVE) Influenza Type B Ag (NEGATIVE) RSV (PCR) (NEGATIVE) SARS-CoV-2 (PCR) (NEGATIVE) 05/12/24 05/12/24 05/12/24 Range/Units 04:15 04:15 04:15 WBC (3.98-10.04) x10^3/uL RBC (3.93-5.22) x10^6/uL Hgb (11.2-15.7) g/dL Hct (34.1-44.9) % MCV (79.4-94.8) fL MCH (25.6-32.2) pg MCHC (32.2-35.5) g/dL RDW (11.7-14.4) % Plt Count (182-369) x10^3/uL MPV (9.4-12.3) fL Gran % (34.0-71.1) % Immature Gran % (Auto) (0.001-0.429) % Nucleat RBC Rel Count (0.00-0.2) % Eos # (Auto) (0.04-0.36) x10^3/uL Immature Gran # (Auto) (0.001-0.031) x10^3u/L Absolute Lymphs (auto) (1.18-3.74) x10^3/uL Absolute Monos (auto) (0.24-0.86) x10^3/uL Absolute Nucleated RBC (0.00-0.012) x10^3u/L Lymphocytes % (19.3-51.7) % Monocytes % (4.7-12.5) % Eosinophils % (0.7-5.8) % Basophils % (0.1-1.2) % Absolute Granulocytes (1.56-6.13) x10^3/uL Basophils # (0.01-0.08) x10^3/uL PT 9.9 (9.4-12.5) SECONDS INR 0.90 (0.8-3.0) D-Dimer (0.0-0.50) mg/L Sodium 139 (135-145) mmol/L Potassium 3.7 (3.5-5.1) mmol/L Chloride 109 H (98-107) mmol/L Carbon Dioxide 23 (22-30) mmol/L Anion Gap 10.6 (5-15) MEQ/L BUN 16 (7-17) mg/dL Creatinine 0.67 (0.52-1.04) mg/dL Estimated GFR 98.2 ML/MIN Glucose 115 H (74-106) mg/dL Lactic Acid (0.4-2.0) Calcium 9.7 (8.4-10.2) mg/dL Total Bilirubin 0.30 (0.2-1.3) mg/dL AST 23 (14-36) U/L ALT 23 (0-35) U/L Alkaline Phosphatase 109 (38-126) U/L Ammonia < 9 L (9-30) umol/L Troponin I (0.000-0.033) ng/mL Serum Total Protein 6.9 (6.3-8.2) g/dL Albumin 3.9 (3.5-5.0) g/dL Urine Color (Yellow) Urine Appearance (Clear) Urine pH (4.6-8.0) Ur Specific Brimley (1.005-1.030) Urine Protein (Negative) Urine Glucose (UA) (Negative) mg/dL Urine Ketones (Negative) Urine Blood (Negative) Urine Nitrite (Negative) Urine Bilirubin (Negative) Urine Urobilinogen (0.2) mg/dL Ur Leukocyte Esterase (Negative) U Hyaline Cast (Auto) (0-2) /LPF Urine Microscopic RBC (0-5) /HPF Urine Microscopic WBC (0-5) /HPF Ur Epithelial Cells (None Seen) /HPF Urine Bacteria (None Seen) /HPF Urine Mucus (NEGATIVE) /HPF Urine Culture Reflexed (NO) Urine Opiates Level (NEGATIVE) Ur Methadone (NEGATIVE) Urine Barbiturates (NEGATIVE) Ur Phencyclidine (PCP) (NEGATIVE) Urine Amphetamine (NEGATIVE) U Benzodiazepine Level (NEGATIVE) Urine Cocaine (NEGATIVE) Urine Marijuana (THC) (NEGATIVE) Ethyl Alcohol (0-10) mg/dL Monoscreen (NEGATIVE) Influenza Type A Ag (NEGATIVE) Influenza Type B Ag (NEGATIVE) RSV (PCR) (NEGATIVE) SARS-CoV-2 (PCR) (NEGATIVE) 05/12/24 05/12/24 05/12/24 Range/Units 04:15 04:15 04:25 WBC (3.98-10.04) x10^3/uL RBC (3.93-5.22) x10^6/uL Hgb (11.2-15.7) g/dL Hct (34.1-44.9) % MCV (79.4-94.8) fL MCH (25.6-32.2) pg MCHC (32.2-35.5) g/dL RDW (11.7-14.4) % Plt Count (182-369) x10^3/uL MPV (9.4-12.3) fL Gran % (34.0-71.1) % Immature Gran % (Auto) (0.001-0.429) % Nucleat RBC Rel Count (0.00-0.2) % Eos # (Auto) (0.04-0.36) x10^3/uL Immature Gran # (Auto) (0.001-0.031) x10^3u/L Absolute Lymphs (auto) (1.18-3.74) x10^3/uL Absolute Monos (auto) (0.24-0.86) x10^3/uL Absolute Nucleated RBC (0.00-0.012) x10^3u/L Lymphocytes % (19.3-51.7) % Monocytes % (4.7-12.5) % Eosinophils % (0.7-5.8) % Basophils % (0.1-1.2) % Absolute Granulocytes (1.56-6.13) x10^3/uL Basophils # (0.01-0.08) x10^3/uL PT (9.4-12.5) SECONDS INR (0.8-3.0) D-Dimer (0.0-0.50) mg/L Sodium (135-145) mmol/L Potassium (3.5-5.1) mmol/L Chloride (98-107) mmol/L Carbon Dioxide (22-30) mmol/L Anion Gap (5-15) MEQ/L BUN (7-17) mg/dL Creatinine (0.52-1.04) mg/dL Estimated GFR ML/MIN Glucose (74-106) mg/dL Lactic Acid (0.4-2.0) Calcium (8.4-10.2) mg/dL Total Bilirubin (0.2-1.3) mg/dL AST (14-36) U/L ALT (0-35) U/L Alkaline Phosphatase (38-126) U/L Ammonia (9-30) umol/L Troponin I (0.000-0.033) ng/mL Serum Total Protein (6.3-8.2) g/dL Albumin (3.5-5.0) g/dL Urine Color Dark Yellow A (Yellow) Urine Appearance Clear (Clear) Urine pH 5.5 (4.6-8.0) Ur Specific Brimley 1.025 (1.005-1.030) Urine Protein 300 A (Negative) Urine Glucose (UA) Negative (Negative) mg/dL Urine Ketones Trace A (Negative) Urine Blood Negative (Negative) Urine Nitrite Negative (Negative) Urine Bilirubin Negative (Negative) Urine Urobilinogen 1.0 A (0.2) mg/dL Ur Leukocyte Esterase Negative (Negative) U Hyaline Cast (Auto) 20-50 (0-2) /LPF Urine Microscopic RBC 0-2 (0-5) /HPF Urine Microscopic WBC 6-10 A (0-5) /HPF Ur Epithelial Cells Rare (None Seen) /HPF Urine Bacteria None Seen (None Seen) /HPF Urine Mucus Many A (NEGATIVE) /HPF Urine Culture Reflexed ORDERED SEPARATELY (NO) Urine Opiates Level (NEGATIVE) Ur Methadone (NEGATIVE) Urine Barbiturates (NEGATIVE) Ur Phencyclidine (PCP) (NEGATIVE) Urine Amphetamine (NEGATIVE) U Benzodiazepine Level (NEGATIVE) Urine Cocaine (NEGATIVE) Urine Marijuana (THC) (NEGATIVE) Ethyl Alcohol (0-10) mg/dL Monoscreen NEGATIVE (NEGATIVE) Influenza Type A Ag NEGATIVE (NEGATIVE) Influenza Type B Ag NEGATIVE (NEGATIVE) RSV (PCR) NEGATIVE (NEGATIVE) SARS-CoV-2 (PCR) NEGATIVE (NEGATIVE) 05/12/24 Range/Units 06:17 WBC (3.98-10.04) x10^3/uL RBC (3.93-5.22) x10^6/uL Hgb (11.2-15.7) g/dL Hct (34.1-44.9) % MCV (79.4-94.8) fL MCH (25.6-32.2) pg MCHC (32.2-35.5) g/dL RDW (11.7-14.4) % Plt Count (182-369) x10^3/uL MPV (9.4-12.3) fL Gran % (34.0-71.1) % Immature Gran % (Auto) (0.001-0.429) % Nucleat RBC Rel Count (0.00-0.2) % Eos # (Auto) (0.04-0.36) x10^3/uL Immature Gran # (Auto) (0.001-0.031) x10^3u/L Absolute Lymphs (auto) (1.18-3.74) x10^3/uL Absolute Monos (auto) (0.24-0.86) x10^3/uL Absolute Nucleated RBC (0.00-0.012) x10^3u/L Lymphocytes % (19.3-51.7) % Monocytes % (4.7-12.5) % Eosinophils % (0.7-5.8) % Basophils % (0.1-1.2) % Absolute Granulocytes (1.56-6.13) x10^3/uL Basophils # (0.01-0.08) x10^3/uL PT (9.4-12.5) SECONDS INR (0.8-3.0) D-Dimer (0.0-0.50) mg/L Sodium (135-145) mmol/L Potassium (3.5-5.1) mmol/L Chloride (98-107) mmol/L Carbon Dioxide (22-30) mmol/L Anion Gap (5-15) MEQ/L BUN (7-17) mg/dL Creatinine (0.52-1.04) mg/dL Estimated GFR ML/MIN Glucose (74-106) mg/dL Lactic Acid (0.4-2.0) Calcium (8.4-10.2) mg/dL Total Bilirubin (0.2-1.3) mg/dL AST (14-36) U/L ALT (0-35) U/L Alkaline Phosphatase (38-126) U/L Ammonia (9-30) umol/L Troponin I < 0.012 (0.000-0.033) ng/mL Serum Total Protein (6.3-8.2) g/dL Albumin (3.5-5.0) g/dL Urine Color (Yellow) Urine Appearance (Clear) Urine pH (4.6-8.0) Ur Specific Brimley (1.005-1.030) Urine Protein (Negative) Urine Glucose (UA) (Negative) mg/dL Urine Ketones (Negative) Urine Blood (Negative) Urine Nitrite (Negative) Urine Bilirubin (Negative) Urine Urobilinogen (0.2) mg/dL Ur Leukocyte Esterase (Negative) U Hyaline Cast (Auto) (0-2) /LPF Urine Microscopic RBC (0-5) /HPF Urine Microscopic WBC (0-5) /HPF Ur Epithelial Cells (None Seen) /HPF Urine Bacteria (None Seen) /HPF Urine Mucus (NEGATIVE) /HPF Urine Culture Reflexed (NO) Urine Opiates Level (NEGATIVE) Ur Methadone (NEGATIVE) Urine Barbiturates (NEGATIVE) Ur Phencyclidine (PCP) (NEGATIVE) Urine Amphetamine (NEGATIVE) U Benzodiazepine Level (NEGATIVE) Urine Cocaine (NEGATIVE) Urine Marijuana (THC) (NEGATIVE) Ethyl Alcohol (0-10) mg/dL Monoscreen (NEGATIVE) Influenza Type A Ag (NEGATIVE) Influenza Type B Ag (NEGATIVE) RSV (PCR) (NEGATIVE) SARS-CoV-2 (PCR) (NEGATIVE) - Radiology Orders Radiology Orders: Radiology Procedures Category Date Time Status HEAD WITHOUT CONTRAST [CT] Stat Exams 05/12/24 03:25 Completed Impressions & Recommendations - Impression Acute Ischemic Stroke: IMPRESSION: Toxic encephalopathy 63 year old woman with unknown past medical history, who reportedly lost consciousness at home and awoke with acute confusion and disorientation. She has improved significantly since arriving in the ER. Her neurological examination is non-focal. A cranial CT reveals multiple chronic lacunar infarcts suggestive of small vessel cerebrovascular disease, but no acute changes. She admitted to drinking alcohol at home, but a serum ethanol level was negative. A toxicology screen, however, was positive for amphetamines and Marijuana. This likely explains her transient loss of consciousness and confusion. Her chest pain and hypertension prompting an ER evaluation yesterday could be related to amphetamine use. No further neurological testing is warrantd at this time. Outpatient Neurology follow-up is suggested regarding the incidental identification of chronic small vessel cerebrovascular disease on CT. - ED Arrival Time ED Arrival Date & Time: ED Arrival Date and Time 05/12/24 03:06 Last known well time: - NIHSS Is patient an IV TPA candidate (if no specify reason): No If not, specify reason:: No clinical suspicion of acute stroke Treatment decision time:: 08:15 Is patient a thrombectomy candidate:: No Candidate (No): Reason: Patient is not a candidat IV Thrombolysis Standard of Care: IV thrombolysis as a standard of care in acute stroke discussed with CADEN GUTIERREZ. Risk, benefits, and options of IV thrombolytic therapy for acute ischemic stroke were discussed with the patient/family BERNICE REA. We discussed that use of IV tenecteplase is in line with national stroke guidelines. We discussed that risks of IV thrombolytic use include intracranial hemorrhage, other fatal bleeding risks, and angioedema. Alternatives of treatment, including not proceeding with thrombolytic therapy were discussed. - Recommendations Recommendations: RECOMMENDATIONS: 1. Aspirin 81-mg 2. Outpatient Neurology follow-up 3. Outpatient Internal Medicine evaluation 4. Substance abuse counseling Assessment & Plan - Encounter Encounter: "The entirety of this encounter was performed via Telemedicine using audio and visual "
[2024-05-12 09:02] VITALS: BP 154/72; PULSE 75; RESP 14; O2SAT 95
--- NOTE | 2024-05-12 09:20 | PCM.NOTE ---
[employer] [facility] Consultation Physician Signature This document was electronically signed by: Chandra Keene MD 05/12/2024 09:03 AM Consult Cover Page FROM: Raya Blandon, Call Back Number: [phone] SUBJECT: Consult Recommendations Date and Time of Report: 05/12/2024 09:16 AM ET Items Contained in this Document: Neurology Consult Note Consult Information Member Facility: [facility] Facility Consult ID: [id number] Facility Time Zone: ET Date and Time of Request: 05-12-2024 07:39 AM ET Requesting Clinician: Dr. Amaro Patient Name: BERNICE REA Date of : 1960 Gender: Female Patient identity was confirmed at the beginning of the consult with the patient/family/staff using two personal identifiers: Patient name and Reason for Consult Reason for Consult: Code Stroke [id number] 4.5 to 24 hours General Chief Complaint: Loss of consciousness, confusion Patient Location and Admission Status: ED- Patient is not admitted Family Members and Medical Staff Present During Exam: RN - Deepali iverson, Daughter at the bedside History of Present Illness: 63 year old woman with unknown past medical history, who reportedly lost consciousness at home and after awakening was confused, disoriented, and repeating the same words and phrases. A neighbor called EMS who confirmed that she was confused. Since her arrival in the ER she has become more responsive. She stated that she was celebrating at home and had several drinks. A serum ethanol level was negative, but a urine toxicology screen was positive for amhetamines and Marijuana. She was evaluated yesterday at the [facility] emergency room for complaints of chest pain. According to her daughter she was found to have elevated blood pressure, but no acute cardiac event. She takes no prescription medications. Number of Documented HPI Elements: 1-3 Medical History Medical History: Unknown Past Procedures: None Pertinent Family History: Unknown Allergies Other Allergies: Nystatin, Flagyl, Hydrocodone Medications Anti-Coagulants: None Anti-Platelets: None Other Medications: None Social History Alcohol Use: Current Drug Use: Current Tobacco Use: None Other Social History : Had alcohol this evening, denied substance abuse but toxicology screen positive for amphetamines and Marijuana Vital Signs Temperature F: 97.0 Temperature C: 36.1 Blood Pressure (mmHg): 158/73 Heart Rate (bpm): 86 Respiration Rate (/min): 16 O2 Sat (%): 95 POC Glucose(mg/dL): 127 Oxygen Delivery Method: Room Air EKG Rhythm: Sinus Rhythm Weight in lbs: 144.4 Weight in KGs: 65.5 Means of collecting weight: Patient weighed at hospital Date and Time: 05/12/2024 08:30:34 AM ET POC Glucose(mg/dL): 115 Review Of Systems General, Constitutional: Pertinent Positives/Negatives General, Constitutional Comments: No recent fevers, myalgias, or malaise Neurological: Pertinent Positives/Negatives Neurological comments: No history of headache, seizures, or stroke Cardiovascular: Pertinent Positives/Negatives Cardiovascular Comments: Evaluated at [facility] yesterday for chest pain. Elevated blood pressure noted, no acute cardiac event NIH Stroke Scale NIH Stroke Scale Score: 1 1. Level of Consciousness: 0 : alert; keenly responsive. 1a. LOC Questions: 0 : Answers both questions correctly. 1b. LOC Commands: 0 : Performs both tasks correctly. 2. Best Gaze: 0 : Normal. 3. Visual: 0 : No visual loss. 4. Facial Palsy: 0 : Normal symmetrical movements. 5a. Motor Left Arm: 0 : No drift; limb holds 90 (or 45) degrees for full 10 seconds. 5b. Motor Right Arm : 0 : No drift; limb holds 90 (or 45) degrees for full 10 seconds. 6a. Motor Left Le : No drift; leg holds 30-degree position for full 5 seconds. 6b. Motor Right Le : No drift; leg holds 30-degree position for full 5 seconds. 7. Limb Ataxia: 0 : Absent. 8. Sensory: 0 : Normal; no sensory loss. 9. Best Language: 0 : No aphasia; normal. 10. Dysarthria: 1 : [id number] dysarthria; patient slurs at least some words and, at worst, can be understood with some difficulty. 11. Extinction and inattention (formerly Neglect) : 0 : No abnormality. NIHSS Entry Time: 05/12/2024 08:31:55 AM ET Exam NEUROLOGICAL EXAMINATION MENTAL STATUS: She was awake and alert. She was able to name the hospital and month, but not the day of the week. Speech was slightly dysarthric. Language was fluent. CRANIAL NERVES: Visual maldonado were full. Extraocular movements were full and co njugate. There was no ptosis. Facial sensation was intact to light touch. There was no facial asymmetry. MOTOR: There was no pronator drift. Fine motor function was intact in both hands. There was no fixed arm roll. She was able to elevate each leg off the bed for 5 seconds. SENSORY: Sensation was intact to light touch throughout COORDINATION: There was no nystagmus or dysmetria Clinician assisting with exam: TAMMI Palumbo assisting Labs and Imaging Labs available?: Yes PT (Seconds): 9.9 INR: 0.9 Blood Glucose (mg/dL): 115 WBC (mcL): 7.8 HGB (g/dL): 14.4 HCT (%): 42.6 PLT (mcL): 296 Na (mEq/L): 139 K (mEq/L): 3.7 BUN (mg/dL): 16 Cr (mg/dL): 0.67 Other Labs: D-Dimer=0.41 Toxicology Screen: +Amphetamine, +Marijuana Ethanol level=negative Other CT Findings : CT: Cortical atrophy, chronic microvascular changes, mutliple chronic subcortical lacunar infarcts Assessment and Recommendations Assessment: 63 year old woman with unknown past medical history, who reportedly lost consciousness at home and awoke with acute confusion and disorientation. She has improved significantly since arriving in the ER. Her neurological examination is non-focal. A cranial CT reveals multiple chronic lacunar infarcts suggestive of small vessel cerebrovascular disease, but no acute changes. She admitted to drinking alcohol at home, but a serum ethanol level was negative. A toxicology screen, however, was positive for amphetamines and Marijuana. This likely explains her transient loss of consciousness and confusion. Her chest pain and hypertension prompting an ER evaluation yesterday could be related to amphetamine use. No further neurological testing is warrantd at this time. Outpatient Neurology follow-up is suggested regarding the incidental identification of chronic small vessel cerebrovascular disease on CT. Recommendations: 1. Aspirin 81-mg 2. Outpatient Neurology follow-up 3. Outpatient Internal Medicine evaluation 4. Substance abuse counseling Disposition: Neurologically clear for discharge to OP follow up Diagnosis Impression: Amphetamine abuse Chronic small vessel cerebrovascular disease Case discussed with: Dr. Nunez Inclusion Criteria Time Last Known Well: Unknown Attestation Interaction Mode: Video & Phone Time of Phone Call : 05-12-2024 08:07 AM ET Time of Video Call : 05-12-2024 07:49 AM ET Interaction Attestation: Clinical telemedicine services delivered using HIPAA- compliant interactive video-audio telecommunications while the patient and the rendering provider were not in the same physical location. Written report was provided to the requesting provider. Evaluation Duration (mins): 56 Marks Timer Summary ED Arrival Date and Time: 05-12-2024 03:15 AM ET Date and Time of Request: 05-12-2024 07:39 AM ET Physician Signature This document was electronically signed by: Chandra Keene MD 05/12/2024 09:03 AM
== END 2024-05-12 09:23 | disposition home or self-care (01) ==
LOC: ED 03:06
DX: R41.0 Disorientation, unspecified (principal); R53.83 Other fatigue; R07.9 Chest pain, unspecified; F15.10 Other stimulant abuse, uncomplicated; F12.10 Cannabis abuse, uncomplicated
CPT/HCPCS: 0241U; 36415; 70450; 80053; 80307; 81001; 82077; 82140; 83605; 84484; 85025; 85379; 85610; 86308; 87040; 87086; 93005; 93041; 94760; 96360; 96361; 99285; P9612